=== PATIENT | female | born 1935 | race Caucasian/White ===

== ENCOUNTER 2023-02-19 11:00 | Outpatient (RCR) | payer MEDICARE, SELFPAY ==
--- NOTE | 2023-01-08 13:25 | HP.PTEVAL_ITS ---
Patient's Visit Information Visit Information Visit Information: VY TIJERINA is a 87 year old F referred to Physical Therapy by Dr. Susan Franco DO with a diagnosis of BALANCE IMPRAREMENT, LUMBAR DDD WITH LBP. Date of Evaluation: 01/08/23 Physical Therapist: Karely Burnham PT, Cert MDT Visit Plan Frequency: 2-3x /Week Duration: 4-6 Weeks Plan: LE STRETCHING/STRENGTHENING, GAIT AND BALANCE TRAINING TO HELP MEET SET GOALS. HAVE PATIENT BRING WALKING STICKS USED AT HOME. GIVE WRITTEN HEP. Subjective Subjective: PATIENT PRESENTS TO PT WITH HER DAUGHTER (VERNELL) AND REPORTS SHE HAS FALLEN SO THE DOCTOR RECOMMENDED PHYSICAL THERAPY. SHE REPORTS SHE WAS PICKING UP BUCKEYES AND SHE TURNED AROUND QUICKLY AND LOST HER BALANCE AND COULDN'T GET UP - ABOUT 3 WEEKS AGO. SHE WAS ALONE AND SHE WAS AT HOME. SHE REPORTS SHE ROLLED OVER AND GOT TO HER STEPS AND PULLED HER SELF UP WITH THE RAILINGS BACKWARDS AND GOT IN THE HOUSE AND SLIDE ACROSS THE FLOOR TO THE CARPET AND MANAGED TO GET ON THE COUCH AND EVENTUALLY ON HER FEET AND WALK BECAUSE SHE HAD HER WALKING STICK. OVER-ALL OTHER THAN SOME BUISING SHE REPORTS SHE WASN'T HURT. Present symptoms: I'M AFRAID OF FALLING AGAIN. LOW BACK PAIN THAT PATIENT RELATES TO ARTHRITIS. SHE STATES SHE DOESN'T REALLY FEEL LIKE HER BACK PAIN IS limiting HER AT THIS STAGE IN HER LIFE. Other: PATIENT REPORTS SHE HAS A HERNIA AND AN OSTOMY AND THERE IS NO PLAN TO REPAIR HER HERNIA RIGHT NOW. PATIENT DOES NOT LEAVE HER HOME ALONE. SHE IS EITHER WITH HER SON, DAUGHTER OR DAUGHTER IN-LAW. Pain Scale: LBP RANGING 1-7/10 Patient reports she does not take medication for her back pain. Is it getting better, worse or staying the same: Patient reports her balance and back pain is staying about the same. Standing and walking increase her LBP and sitting decreases her LBP. Gait: Has been using a cane for years. Bowel or Bladder Dysfunction: Currently on Antibiotic for UTI Unexplained weight loss: No Imaging: None recent. PMH/Recent major surgery: HTN. HIGH CHOLESTEROL. HYPOTHYROIDISM. MELONOMA. Unrepaired Hernia. Colon removal due to C-diff. No back surgery. No h/o ZOHRA 's. No hip or knee surgeries. OTHER: LIVES ALONE. 2 LEVELS. 3 STEPS IN AND OUT OF HOUSE. RAMP BUT ONLY WITH ONE HANDRAIL. Objective Objective: PATIENT IS HARD OF HEARING BUT THIS PT WAS ABLE TO COMMUNICATE WITH PATIENT VERY WELL TODAY LONG SHE WAS ABLE TO SEE MY FACE WHILE I WAS TALKING TO HER. SHE FOLLOWS COMMANDS WELL AND IS PLEASANT AND COOPERATIVE TO WORK WITH. Sitting/Standing Posture: POOR. FORWARD HEAD. ROUNDED SHOULDER'S. INCREASED KYPHOSIS. INCREASED TRUNK FLEXION. Active Correction of posture: ONLY ABLE TO PARTIALLY CORRECT AND ATTEMPTS RESULT IN C/O ORAL LBP. Other Observations: THIS PATIENT AMBULATES INTO PT USING A WALKING STICK AND HOLDING ONTO HER DAUGHTER. WHEN SHE IS NOT HOLDING ONTO HER DAUGHTER SHE REACHES FOR EXTERNAL SUPPORTS. Sensory deficit: ORAL LE LIGHT TOUCH SENSATION IS GROSSLY INTACT AND SYMMETRICAL ROM deficit: PATIENT HAS ORAL LE HIP FLEXOR, HS AND GASTROC-SOLEUS COMPLEX TIGHTNESS. Motor deficit: ORAL HIPS GROSSLY 4-/5, KNEES 4-/5, ANKLES 4/5. Dural Signs: NEGATIVE ORAL LE'S. Lumbar mvmt loss: flex - NIL ext - GALILEA R SG - GALILEA L SG - GALILEA PATIENT C/O LBP WITH LUMBAR EXTENSION ROM TESTING AND C/O LBP AND ORAL THIGH PAIN WITH ORAL SG TESTING THAT DOES NOT REMAIN WORSE A RESULT. Core strength: POOR OTHER: PATIENT IS RELUCTANT TO COME TO PT. HER DAUGHTER WORKS AND LIVES IN [place] AND SHE DOES NOT WANT TO/CAN'T USE OUR [facility]. SHE DOES NOT WANT TO INCONVENIENCE HER CHILDREN AND WOULD RATHER DO HOME PT IF POSSIBLE BUT AT THE ENCOURAGEMENT OF HER DAUGHTER IS WILLING TO TRY OUTPATIENT PT. POC DISCUSSED AND AGREED UPON BY DAUGHTER AND PATIENT ON A TRIAL BASIS. THIS PT DISCUSSED WITH PATIENT AND DAUGHTER THAT PATIENT IS NOT SAFE WITH ONLY ONE WALKING STICK AND THEY ARE AGREEABLE. PATIENT IS APPARENTLY USING 2 WALKING STICKS WHEN NOT HAVING A FAMILY MEMBER TO HOLD ON TO AND USES HER FWW ALMOST ALL THE TIME IN HER HOME. SHE DOES NOT FEEL SAFE USING HER WALKER TO GO DOWN THE RAMP TO GO OUTSIDE ALONE BECUASE IT ONLY HAS ONE HANDRAIL AND IF SHE FALLS SHE WILL FALL OFF. Balance/Special Test Scores Lower Extremity Functional Score: 26 TUG Test Time Seconds: 38.31 30 Second Chair Rise Test Seconds: 4 Goals Goal 1:: PATIENT WILL COMPLETE 6 STANDS IN 30 SECS TO DEMONSTRATE IMPROVED FUNCTIONAL LE STRENGTH Goal Time Frame: 4-6 Weeks Goal 2:: PATIENT WILL COMPLETE TUG INDEP'LY IN < 25 SECS WITH 2 WALKING STICKS TO DEMONSTRATE IMPROVED GAIT STABILITY Goal Time Frame: 4-6 Weeks Goal 3:: PATIENT WILL AMBULATE 100 FEET WITH 2 WALKING STICKS INDEP'LY WITHOUT LOB TO INCREASE SAFETY OUTSIDE OF HOME ALONE. Goal Time Frame: 4-6 Weeks Goal 4:: PATIENT WILL BE ABLE TO ASCEND AND DESCEND 3 STEPS (SIMULATING HOME SITUATION) INDEP'LY TO BE ABLE TO SAFELY GET IN AND OUT OF HOME ALONE. Goal Time Frame: 4-6 Weeks Goal 5:: PATIENT WILL BE INDEP WITH A HEP FOR CONTINUED IMPROVEMENT ONCE FORMAL PHYSICAL THERAPY CONCLUDES. Goal Time Frame: 4-6 Weeks Rehabilitation Potential Rehabilitation Potential: Fair Anticipated Interventions Patient/Client Instruction: Educate patient on: Condition, Plan of Care and Risk Factors For the Purpose of:: To improve self management Therapeutic Exercise to Include: Strength training, Balance training, Flexibilty training and Gait and locomotor training For the Purpose of:: To increase ROM, To improve muscle performance and motor function, To improve gait and locomotor functions, To improve balance and To improve safety with gait Text: Thank you for the opportunity to evaluate your patient. For Medicare and Medicare HMO plans, please review the plan of care and approve it. It will need to be FAXED BACK to us at [phone] for Medicare purposes. For Medicare only, by signing this I certify the plan of care. Please let me know if there are questions or concerns regarding this plan of care. Physician Signature: Date:
--- NOTE | 2023-07-13 15:29 | HP.PT.NRP ---
Patient Information Patient Information: VY TIJERINA was seen in my office for initial evaluation on 01/08/23. The following Plan of Care was established for this patient: POC Established Initial Frequency: 2-3x /Week Initial Duration: 4-6 Weeks Anticipated Interventions Patient/Client Instruction: Educate patient on: Condition, Plan of Care and Risk Factors For the Purpose of:: To improve self management Therapeutic Exercise to Include: Strength training, Balance training, Flexibilty training and Gait and locomotor training For the Purpose of:: To increase ROM, To improve muscle performance and motor function, To improve gait and locomotor functions, To improve balance and To improve safety with gait Last Seen Last Seen: This patient was last seen in our office 02/19/23. Pertinent comments regarding their Physical therapy will appear below: This patient has not returned to Physical Therapy and is appropriate to return to MD for further follow-up as needed. At this point I will be discontinuing this patient from physical therapy. I would be happy to see this patient again in the future if found appropriate by the physician. Thank you! Karely Burnham, PT, Cert MDT Balance/Gait/Functional tests Balance/Special Test Scores Lower Extremity Functional Score: 26 TUG Test Time Seconds: 38.31 Tug Test: >30sec.=impaired mobility 30 Second Chair Rise Test Seconds: 4
== END 2023-02-19 19:00 | disposition home or self-care (01) ==
LOC: PT 11:00
PROVIDERS: PCP Internal Medicine; Visit Provider Internal Medicine
DX: M51.36 Other intervertebral disc degeneration, lumbar region (principal); M54.50 Low back pain, unspecified; R26.81 Unsteadiness on feet
CPT/HCPCS: 97110; 97162; 97530